=== PATIENT | male | born 1990 | race Caucasian/White ===

== ENCOUNTER → 2019-03-07 07:50 | Outpatient (CLI) | payer OTHER, SELFPAY ==
[2018-12-29 17:46] VITALS: BMI 28.3
[2019-03-07 10:40] LABS: Cholesterol 154 mg/dL (200); Glucose 106 mg/dL (74-106); High Density Lipoprotein 34 mg/dL; Triglycerides 95 mg/dL; Very Low Density Lipoprotein 19 mg/dL (5-40)
== END ==
PROVIDERS: Family Provider Family Medicine; PCP Family Medicine; Referring Provider Family Medicine; Visit Provider Family Medicine
DX: Z13.220 Encounter for screening for lipoid disorders (principal); Z13.1 Encounter for screening for diabetes mellitus
CPT/HCPCS: 36415; 80061; 82947

== ENCOUNTER → 2019-07-25 11:22 | Outpatient (CLI) | payer OTHER, SELFPAY ==
[2018-12-29 17:46] VITALS: BMI 28.3
--- NOTE | 2019-07-25 11:29 | US_ITS ---
STUDY: ABDOMINAL ULTRASOUND - RIGHT UPPER QUADRANT REASON FOR VISIT: Male, 29 years old RUQ PAIN X 2 YEARS TECHNIQUE: Ultrasound evaluation of the right upper quadrant was performed with real-time and static pang-scale imaging. TECHNICAL QUALITY: Adequate. COMPARISON: None. FINDINGS: Liver: The liver measures 17 cm. There is mildly increased echogenicity of the liver. The bile ducts are within normal limits. There is hepatic color flow. The direction of portal flow is hepatopetal. There is no demonstrated mass lesion. Gallbladder: Normal distended gallbladder. The gallbladder wall measures 2.4 mm. There is a negative sonographic Gallagher''s sign. There is no pericholecystic fluid. There are no gallstones. Common Bile Duct (C.B.D.): The common bile duct measures 5.1 mm. Pancreas: There is nonvisualization of the pancreas. Right Kidney: Normal size of the right kidney. The right kidney measures 11.4 x 6.3 x 5.1 cm. Normal renal cortex. The right cortex measures 1.7 cm. There is no demonstrated renal mass or cyst. There is no right hydronephrosis. US/Abdomen Limited IMPRESSION: 1. No gallstones or biliary dilation. 2. Mild increased echogenicity of the liver is nonspecific but most commonly associated with hepatic steatosis. 3. Nonvisualized pancreas. Electronically Signed: Alireza Abrams MD ([place]) at 15:22 EST , Service support ,
== END ==
PROVIDERS: PCP Family Medicine; Referring Provider Family Medicine; Visit Provider Family Medicine
DX: R10.11 Right upper quadrant pain (principal)
CPT/HCPCS: 76705

== ENCOUNTER → 2019-07-30 15:05 | Outpatient (CLI) | payer OTHER, SELFPAY ==
[2018-12-29 17:46] VITALS: BMI 28.3
[2019-08-01 05:06] LABS: HEPATITIS B SURFACE AG Negative (Negative); Hepatitis A AB, Total Negative (Negative); Hepatitis A IgM Antibody Negative (Negative); Hepatitis B Core AB IgM Negative (Negative); Hepatitis B Core Ab Total Negative (Negative); Hepatitis C Ab <0.1 s/co ratio (0.0-0.9)
[2019-08-01 10:40] LABS: Hep B Surface Antibodies Non Reactive (.)
== END ==
PROVIDERS: PCP Family Medicine; Referring Provider Family Medicine; Visit Provider Family Medicine
DX: K76.0 Fatty (change of) liver, not elsewhere classified (principal)
CPT/HCPCS: 36415; 86704; 86705; 86706; 86708; 86709; 86803; 87340

== ENCOUNTER → 2019-11-25 11:17 | Outpatient (CLI) | payer OTHER, SELFPAY ==
[2018-12-29 17:46] VITALS: BMI 28.3
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
== END ==
PROVIDERS: PCP Family Medicine; Referring Provider Family Medicine; Visit Provider Family Medicine
DX: S49.92XA Unspecified injury of left shoulder and upper arm, initial encounter (principal)
CPT/HCPCS: 73030